=== PATIENT | male | born 1995 | race Caucasian/White ===

== ENCOUNTER 2018-01-07 07:33 | Inpatient (IN) | payer BC, OTHER ==
[~2018-01-07] VITALS: Ht 180.3 cm; Wt 54.4 kg
[2018-01-07] MEDS ORDERED: LOPERAMIDE HCL 2 MG CAPSULE PO PRN ×2 (20:30)
[2018-01-07] MEDS ORDERED: CLONIDINE HCL 0.1 MG TABLET PO PRN (20:30)
[2018-01-07] MEDS ORDERED: DICYCLOMINE HCL 20 MG TABLET PO PRN (20:30)
[2018-01-07] MEDS ORDERED: HYDROXYZINE PAMOATE 25 MG CAPSULE PO PRN (20:30)
[2018-01-07] MEDS ORDERED: BUPRENORPHINE HCL 2 MG TAB.SUBL SL PRN (20:30)
[2018-01-07] MEDS ORDERED: IBUPROFEN 600 MG TABLET PO PRN (20:30)
[2018-01-07] MEDS ORDERED: LORAZEPAM 2 MG/1 ML VIAL IM PRN (20:30)
[2018-01-07] MEDS ORDERED: DOCUSATE SODIUM 250 MG CAPSULE PO PRN (20:30)
[2018-01-07] MEDS ORDERED: MAG HYDROX/AL HYDROX/SIMETH 30 ML LIQUID UDC PO PRN (20:30)
[2018-01-07] MEDS ORDERED: MIRALAX 17 GM POWD.PACK PO PRN (20:30)
[2018-01-07] MEDS ORDERED: ACETAMINOPHEN 325 MG TABLET PO PRN (20:30)
[2018-01-07] MEDS ORDERED: ONDANSETRON 4 MG/2 ML VIAL IM PRN (20:30)
[2018-01-07 21:07] LABS: *AMPHETAMINE, URINE POSITIVE (NEGATIVE); *BARBITURATE, URINE NEGATIVE (NEGATIVE); *CANNABINOID, URINE POSITIVE (NEGATIVE); *COCCAINE, URINE NEGATIVE (NEGATIVE); *OPIATE, URINE POSITIVE (NEGATIVE); *PHENCYCLIDINE SCREEN,URINE NEGATIVE (NEGATIVE)
[2018-01-07] MEDS: diphenhydrAMINE 50 MG CAPSULE PO PRN (21:21)
[2018-01-07 22:02] LABS: BASOPHILS % (AUTO) 0.4 % (0.0-2.0); EOSINOPHILS # (AUTO) 0.1 K/uL (0.0-0.7); EOSINOPHILS % (AUTO) 1.5 % (0.0-7.0); HEMATOCRIT 45.2 % (36.7-47.1); HEMOGLOBIN 15.6 g/dL (12.5-16.3); LYMPHOCYTES % (AUTO) 30.7 % (20.5-51.5); MEAN CORPUSCULAR HGB CONC 35 g/dL (32.5-36.3); MONOCYTES # (AUTO) 0.5 K/uL (2.0-10.0); MONOCYTES % (AUTO) 7.3 % (0.0-11.0); NEUTROPHILS # (AUTO) 3.8 K/uL (1.8-8.9); NEUTROPHILS % (AUTO) 60.1 % (38.5-71.5); PLATELET COUNT (AUTO) 204 K/uL (152-348); RED BLOOD CELL COUNT(AUTO) 5.38 MIL/uL (4.06-5.63); WHITE BLOOD COUNT (AUTO) 6.4 K/uL (3.6-10.2)
[2018-01-07 22:15] LABS: ALANINE AMINOTRANSFERASE 17 U/L (16-63); ALKALINE PHOSPHATASE 85 U/L (50-136); ASPARTATE AMINOTRANSFERASE 16 U/L (15-37); BILIRUBIN,TOTAL 0.4 mg/dL (0.2-1.0); CARBON DIOXIDE 32 mmol/L (21-32); CHLORIDE 102 mmol/L (98-107); CREATININE 0.9 mg/dL (0.6-1.3); ETHANOL < 3 MG/DL (0-0); MAGNESIUM 1.9 mg/dL (1.8-2.4); POTASSIUM 3.7 mmol/L (3.5-5.1); UREA NITROGEN, BLOOD 9 mg/dL (7-18)
[2018-01-07 22:26] LABS: GLUCOSE 53 mg/dL (74-106)
[2018-01-08 04:00] VITALS: BP 102/65
[2018-01-08 08:00] VITALS: BP 108/51
[2018-01-08] MEDS ORDERED: BUPRENORPHINE HCL 2 MG TAB.SUBL SL SCH (09:00)
[2018-01-08] MEDS ORDERED: TUBERCULIN,PURIF.PROT.DERIV. 5 TU/0.1 ML TEST ID ONE (09:00)
[2018-01-08 12:00] VITALS: BP 99/68
[2018-01-08] MEDS: BUPRENORPHINE HCL 2 MG TAB.SUBL SL SCH ×3 (14:00→20:50)
[2018-01-08 16:00] VITALS: BP 116/78
[2018-01-08 20:20] VITALS: BP_SYST 122; BP_SYST 144; BP_DIAS 73; BP_DIAS 82
[2018-01-08] MEDS: LORAZEPAM 1 MG TABLET PO PRN (20:50)
[2018-01-09 00:43] VITALS: BP 124/70
[2018-01-09 04:31] VITALS: BP 93/57
[2018-01-09 08:00] VITALS: BP 104/57
[2018-01-09] MEDS ORDERED: HYDROXYZINE PAMOATE 25 MG CAPSULE PO PRN (09:00)
[2018-01-09] MEDS ORDERED: BUPRENORPHINE HCL 2 MG TAB.SUBL SL SCH (09:00)
[2018-01-09] MEDS: LORAZEPAM 1 MG TABLET PO PRN (09:35)
[2018-01-09 12:09] VITALS: BP 113/58
[2018-01-09] MEDS: DOCUSATE SODIUM 250 MG CAPSULE PO SCH (12:46)
[2018-01-09] MEDS ORDERED: MIRALAX 17 GM POWD.PACK PO SCH (13:00)
[2018-01-09 13:17] LABS: HEPATITIS B SURFACE AG Negative (Negative)
[2018-01-09] MEDS: GABAPENTIN 300 MG CAPSULE PO SCH ×2 (14:25→20:42)
[2018-01-09] MEDS: BUPRENORPHINE HCL 2 MG TAB.SUBL SL SCH ×2 (14:27→21:00)
[2018-01-09 16:00] VITALS: BP 99/57
[2018-01-09 20:00] VITALS: BP 127/74
[2018-01-09] MEDS: CLONIDINE HCL 0.1 MG TABLET PO SCH (20:42)
[2018-01-09] MEDS: METHOCARBAMOL 750 MG TABLET PO PRN (20:42)
[2018-01-10 08:00] VITALS: BP 92/55
[2018-01-10] MEDS ORDERED: BUPRENORPHINE HCL 2 MG TAB.SUBL SL SCH (09:00)
[2018-01-10] MEDS: CLONIDINE HCL 0.1 MG TABLET PO SCH ×2 (09:00→21:04)
[2018-01-10] MEDS: DOCUSATE SODIUM 250 MG CAPSULE PO SCH (09:37)
[2018-01-10] MEDS: GABAPENTIN 300 MG CAPSULE PO SCH ×2 (09:37→14:52)
[2018-01-10 12:00] VITALS: BP 109/62
[2018-01-10] MEDS: BUPRENORPHINE HCL 2 MG TAB.SUBL SL SCH ×3 (13:16→21:04)
[2018-01-10] MEDS: ACETAMINOPHEN 325 MG TABLET PO SCH ×2 (14:52→21:00)
[2018-01-10 16:00] VITALS: BP 117/75
[2018-01-10 20:00] VITALS: BP 123/71
[2018-01-10] MEDS ORDERED: GABAPENTIN 300 MG CAPSULE PO SCH (21:00)
[2018-01-10] MEDS: METHOCARBAMOL 750 MG TABLET PO PRN (21:04)
[2018-01-11] MEDS ORDERED: BUPRENORPHINE HCL 2 MG TAB.SUBL SL SCH (09:00)
[2018-01-11] MEDS: ACETAMINOPHEN 325 MG TABLET PO SCH ×3 (09:00→20:19)
[2018-01-11] MEDS: CLONIDINE HCL 0.1 MG TABLET PO SCH ×2 (09:01→20:19)
[2018-01-11] MEDS: DOCUSATE SODIUM 250 MG CAPSULE PO SCH (09:01)
[2018-01-11] MEDS: BUPRENORPHINE HCL 2 MG TAB.SUBL SL SCH ×3 (09:01→20:20)
[2018-01-11] MEDS: GABAPENTIN 300 MG CAPSULE PO SCH ×4 (09:01→20:19)
[2018-01-11 10:14] VITALS: BP 104/68
[2018-01-11] MEDS: METHOCARBAMOL 750 MG TABLET PO PRN ×2 (10:40→20:19)
[2018-01-11 12:22] VITALS: BP 108/68
[2018-01-11] MEDS ORDERED: MAGNESIUM CITRATE 296 ML BOTTLE PO PRN (12:30)
[2018-01-11] MEDS ORDERED: KETOROLAC TROMETHAMINE 30 MG INJ IM PRN (12:30)
[2018-01-11] MEDS ORDERED: BISACODYL 10 MG SUPP.RECT RC PRN (12:30)
[2018-01-11] MEDS ORDERED: BISACODYL 5 MG TABLET.DR PO PRN (12:30)
[2018-01-11] MEDS: BACLOFEN 10 MG TABLET PO SCH ×2 (15:47→20:19)
[2018-01-11 17:04] VITALS: BP 142/66
[2018-01-11 20:00] VITALS: BP 119/70
[2018-01-11] MEDS: diphenhydrAMINE 50 MG CAPSULE PO PRN (20:28)
[2018-01-12 08:04] VITALS: BP 104/58
[2018-01-12] MEDS ORDERED: BUPRENORPHINE HCL 2 MG TAB.SUBL SL SCH (09:00)
[2018-01-12] MEDS: ACETAMINOPHEN 325 MG TABLET PO SCH ×3 (09:18→20:54)
[2018-01-12] MEDS: GABAPENTIN 300 MG CAPSULE PO SCH ×3 (09:18→20:55)
[2018-01-12] MEDS: BACLOFEN 10 MG TABLET PO SCH ×3 (09:18→20:53)
[2018-01-12] MEDS: DOCUSATE SODIUM 250 MG CAPSULE PO SCH (09:18)
[2018-01-12] MEDS: CLONIDINE HCL 0.1 MG TABLET PO SCH ×2 (09:19→20:54)
[2018-01-12 12:33] VITALS: BP 96/63
[2018-01-12 16:00] VITALS: BP 128/80
[2018-01-12 20:00] VITALS: BP 117/75
[2018-01-12] MEDS: TRAZODONE 50 MG TABLET PO PRN (20:53)
[2018-01-12] MEDS ORDERED: METH-406 PO (21:46)
[2018-01-12] MEDS ORDERED: ACET325T53 PO (21:46)
[2018-01-12] MEDS ORDERED: DOCU250C14 PO (21:46)
[2018-01-12] MEDS ORDERED: DICY20TA28 PO (21:46)
[2018-01-12] MEDS ORDERED: HYDR-3895 PO (21:46)
[2018-01-12] MEDS ORDERED: IBUP-1955 PO (21:46)
[2018-01-12] MEDS ORDERED: CLON0.1T14 PO (21:46)
[2018-01-12] MEDS ORDERED: GABA-534 PO (21:46)
[2018-01-12] MEDS ORDERED: TRAZ-144 PO (21:46)
[2018-01-12] MEDS: ONDANSETRON ODT 4 MG TAB.RAPDIS SL PRN (22:29)
[2018-01-13] VITALS: BP 117/77
[2018-01-13 04:00] VITALS: BP 108/68
[2018-01-13] MEDS: ACETAMINOPHEN 325 MG TABLET PO SCH ×3 (08:38→20:32)
[2018-01-13] MEDS: DOCUSATE SODIUM 250 MG CAPSULE PO SCH (08:38)
[2018-01-13] MEDS: BACLOFEN 10 MG TABLET PO SCH (08:38)
[2018-01-13] MEDS: ONDANSETRON ODT 4 MG TAB.RAPDIS SL PRN (08:38)
[2018-01-13] MEDS: GABAPENTIN 300 MG CAPSULE PO SCH ×3 (08:38→20:33)
[2018-01-13] MEDS: CLONIDINE HCL 0.1 MG TABLET PO SCH ×2 (08:39→20:32)
[2018-01-13] MEDS ORDERED: METOCLOPRAMIDE HCL 10 MG/2 ML VIAL IM ONE (08:45)
[2018-01-13] MEDS ORDERED: LORAZEPAM 1 MG TABLET PO ONE (09:45)
[2018-01-13] MEDS ORDERED: BUPRENORPHINE HCL 2 MG TAB.SUBL SL ONE (09:45)
[2018-01-13] MEDS ORDERED: PROMETHAZINE HCL 25 MG/1 ML VIAL IM PRN (09:45)
[2018-01-13] MEDS ORDERED: IV D5 1/2 NS 1000 ML 1,000 ML IV PRN (09:45)
[2018-01-13] MEDS ORDERED: DICYCLOMINE HCL 20 MG/2 ML AMPUL IM ONE (09:45)
[2018-01-13 10:17] VITALS: BP 109/74
[2018-01-13] MEDS: PANTOPRAZOLE SODIUM 40 MG VIAL IV SCH (10:33)
[2018-01-13 11:14] LABS: BASOPHILS % (AUTO) 0.5 % (0.0-2.0); EOSINOPHILS # (AUTO) 0.1 K/uL (0.0-0.7); EOSINOPHILS % (AUTO) 2.8 % (0.0-7.0); HEMATOCRIT 41.4 % (36.7-47.1); HEMOGLOBIN 14.2 g/dL (12.5-16.3); LYMPHOCYTES # (AUTO) 1.4 K/uL (20.0-40.0); LYMPHOCYTES % (AUTO) 33.8 % (20.5-51.5); MAGNESIUM 1.8 mg/dL (1.8-2.4); MEAN CORPUSCULAR HEMOGLOBIN 28.4 uug (23.8-33.4); MEAN CORPUSCULAR HGB CONC 34 g/dL (32.5-36.3); MEAN CORPUSCULAR VOLUME 82.4 fL (73.0-96.2); MONOCYTES # (AUTO) 0.6 K/uL (2.0-10.0); MONOCYTES % (AUTO) 13.3 % (0.0-11.0); NEUTROPHILS # (AUTO) 2.1 K/uL (1.8-8.9); NEUTROPHILS % (AUTO) 49.6 % (38.5-71.5); PLATELET COUNT (AUTO) 171 K/uL (152-348); POTASSIUM 3.8 mmol/L (3.5-5.1); RED BLOOD CELL COUNT(AUTO) 5.02 MIL/uL (4.06-5.63); WHITE BLOOD COUNT (AUTO) 4.2 K/uL (3.6-10.2)
[2018-01-13] MEDS: DICYCLOMINE HCL 20 MG TABLET PO SCH ×2 (15:00→20:33)
[2018-01-13 16:53] VITALS: BP 115/78
[2018-01-13 20:21] VITALS: BP 125/88
[2018-01-13] MEDS: TRAZODONE 50 MG TABLET PO PRN (20:33)
[2018-01-14 00:13] VITALS: BP 119/74
[2018-01-14 04:10] VITALS: BP 111/63
[2018-01-14 08:00] VITALS: BP 107/60
[2018-01-14 08:36] VITALS: BP 107/60
[2018-01-14] MEDS: ACETAMINOPHEN 325 MG TABLET PO SCH (08:36)
[2018-01-14] MEDS: PANTOPRAZOLE SODIUM 40 MG VIAL IV SCH (08:36)
[2018-01-14] MEDS: CLONIDINE HCL 0.1 MG TABLET PO SCH (08:36)
[2018-01-14] MEDS: GABAPENTIN 300 MG CAPSULE PO SCH (08:36)
[2018-01-14] MEDS: DOCUSATE SODIUM 250 MG CAPSULE PO SCH (08:36)
[2018-01-14] MEDS: DICYCLOMINE HCL 20 MG TABLET PO SCH (08:36)
== END 2018-01-14 09:25 | disposition other institution (70) | DRG 895 ==
LOC: SRC 19:34
PROVIDERS: ADMIT Internal Medicine; ATTEND Internal Medicine
PROC: HZ2ZZZZ Detoxification Services for Substance Abuse Treatment (ICD-10-PCS; principal; 2018-01-07)
PROC: HZ31ZZZ Individual Counseling for Substance Abuse Treatment, Behavioral (ICD-10-PCS; 2018-01-09)
PROC: HZ41ZZZ Group Counseling for Substance Abuse Treatment, Behavioral (ICD-10-PCS; 2018-01-12)
DX: F11.23 Opioid dependence with withdrawal (principal); E16.2 Hypoglycemia, unspecified; F10.11 Alcohol abuse, in remission; F41.9 Anxiety disorder, unspecified; Z81.1 Family history of alcohol abuse and dependence; Z91.5 Personal history of self-harm; F13.239 Sedative, hypnotic or anxiolytic dependence with withdrawal, unspecified; F15.23 Other stimulant dependence with withdrawal; Z81.8 Family history of other mental and behavioral disorders; Z72.0 Tobacco use; Z59.1 Inadequate housing; F12.10 Cannabis abuse, uncomplicated; F14.10 Cocaine abuse, uncomplicated; K59.03 Drug induced constipation
CPT/HCPCS: 36415; 70030-TC; 80307; 80324; 80349; 80361; 83735; 85025; 86580; 86592; 86705; 86803; 87340; 87806; A4663; C9113; G0480; J0500; J2765; J3490; Q0162; Q0163